=== PATIENT | female | born 1975 | race Caucasian/White ===

== ENCOUNTER 2025-08-03 07:07 | Emergency (ER) | payer OTHER | END 2025-08-03 09:00 | disposition home or self-care (01) | LOC: JP.ED 07:07 | DX: S63.642A Sprain of metacarpophalangeal joint of left thumb, initial encounter (principal); I10 Essential (primary) hypertension; Z79.899 Other long term (current) drug therapy; Z86.16 Personal history of COVID-19; W19.XXXA Unspecified fall, initial encounter | CPT/HCPCS: 73130-26-LT; 73130-LT; 99283 ==